=== PATIENT | female | born 1960 | race Caucasian/White ===

== ENCOUNTER → 2016-11-08 | Outpatient (CLI) | payer OTHER ==
[2016-11-08 09:42] LABS: BASOPHIL# 0.1 X10e3 (0-0.3); BASOPHIL% 1.1 % (0-2.5); EOSINOPHIL# 0.3 X10e3 (0-0.7); EOSINOPHIL% 4.2 % (0.0-7.0); HEMATOCRIT 41.8 % (35.0-45.0); HEMOGLOBIN 13.7 gm/dL (12.0-16.0); LYMPHOCYTE# 1.9 X10e3 (1.0-3.5); LYMPHOCYTE% 26.5 % (17.0-45.0); MEAN CELL VOLUME 96.8 FL (83-96); MEAN CORPUSCULAR HEMOGLOBIN 31.7 PG (28-34); MEAN CORPUSCULAR HGB CONC 32.7 g/dL (30-36); MEAN PLATELET VOLUME 7.4 FL (6.5-11.5); MONOCYTE% 14.3 % (3.0-12.0); NEUTROPHIL# 3.9 X10e3 (1.5-7.1); NEUTROPHIL% 53.9 % (40-75); PLATELET COUNT 262 X10e3 (140-420); RED BLOOD COUNT 4.32 X10e (3.90-5.30); RED CELL DISTRIBUTION WIDTH 13.1 % (11.0-15.5); WHITE BLOOD COUNT 7.3 X10e3 (4.0-10.5)
[2016-11-08 09:44] LABS: URINE APPEARANCE CLEAR; URINE BILIRUBIN NEG (NEG); URINE BLOOD NEG (NEG); URINE COLOR YELLOW; URINE GLUCOSE NEG (NEG); URINE KETONE NEG (NEG); URINE LEUKOCYTE ESTERASE 1+ (NEG); URINE NITRATE NEG (NEG); URINE PROTEIN NEG (NEG); URINE SPECIFIC GRAVITY 1.005 (1.003-1.035); URINE UROBILINOGEN 0.2 MG/DL (NEG)
[2016-11-08 09:46] LABS: DIFF IND NO; URBCS1 AUWI 0-2 /[HPF] (0-2); URINE BACTERIA AUWI NEG (NEGATIVE); URINE SQUAMOUS EPITHELIAL CELL OCC /[HPF]
[2016-11-08 09:47] LABS: URINE SOURCE CLEAN CATCH
[2016-11-08 10:29] LABS: FOLATE (FOLIC ACID) 20.4 ng/mL (>5.8)
[2016-11-08 10:36] LABS: ALBUMIN SERUM 4.4 g/dL (3.5-5.0); BILIRUBIN,TOTAL 0.6 mg/dL (0.2-2.0); BUN/CREATININE RATIO 11.66; CALCIUM SERUM 9.6 mg/dL (8.4-10.2); CREATININE SERUM 0.6 mg/dL (0.6-1.4); GLOM FILT RATE Estimated 101.2 mL/min (>60); POTASSIUM 4.7 mmol/L (3.5-5.1); PROTEIN TOTAL SERUM 7.5 g/dL (6.0-8.3)
== END | disposition home or self-care (01) ==
LOC: CLAB 09:04
PROVIDERS: Internal Medicine
DX: Z00.01 Encounter for general adult medical examination with abnormal findings (principal); B19.20 Unspecified viral hepatitis C without hepatic coma; E03.9 Hypothyroidism, unspecified; G62.9 Polyneuropathy, unspecified
CPT/HCPCS: 36415; 80053; 80061; 81003; 82607; 82746; 84443; 85025

== ENCOUNTER → 2016-12-01 | Outpatient (CLI) | payer OTHER ==
--- NOTE | ~2016-12-01 | US5 ---
[facility] A Service of [facility] RADIOLOGY TEXT RESULTS PATIENT: DEJON HO LOCATION: [facility] : 58 UNIT #: [id number] AGE: [address]: Nick Juan MD SEX: F ORDER DR: [id number] [place], [place] [address] [id number] O MR#: [id number] Acc #: [id number] NAME: DEJON HO : 1960 SEX: F STUDY DATE/TIME: 12/01/2016 8:51 UNIT: CGUS ROOM: STUDY DESCRIPTION: US Abdominal Complete Attending Physician: Nick Juan III, M.D. Referring Physician: Nick Juan III, M.D. Ordering Physician: Nick Juan III, M.D. Primary Care Physician: Kellee Tao M.D. MEDICAL IMAGING REPORT This report is preliminary unless electronic signature is present EXAM Abdominal ultrasound INDICATIONS Cirrhosis. Observation for hepatocellular carcinoma. TECHNIQUE Navarro-scale, Doppler imaging of the abdomen. COMPARISON STUDIES None. FINDINGS Sonographic images of the abdominal aorta and vena cava unremarkable. Heterogeneous liver echotexture. Common duct measures 3 mm. No liver mass seen on submitted images. Unremarkable gallbladder. Liver measures 16.5 cm. Right kidney measures 10 cm and is normal. Spleen measures 7.7 cm. Left kidney measures 7 cm. IMPRESSION Coarsened hepatic echotexture in keeping with cirrhosis. No liver mass on submitted images. The spleen is of normal size. Dictated by... Indio Davidson M.D. THIS IS AN ELECTRONICALLY VERIFIED REPORT Indio Davidson M.D. at 12/02/2016 2:25 PM EED/pcl TD: 12/01/2016 22:01 [facility] A Service of [facility] RADIOLOGY TEXT RESULTS PATIENT: DEJON HO LOCATION: [facility] : 58 UNIT #: [id number] AGE: [address]: Nick Juan MD SEX: F ORDER DR: JOB #: [id number] MEDICAL IMAGING REPORT Page 1 of 1 COPY
== END | disposition home or self-care (01) ==
LOC: CGUS 08:30
DX: B18.2 Chronic viral hepatitis C (principal)
CPT/HCPCS: 76700